=== PATIENT | male | born 1985 | race Caucasian/White ===

== ENCOUNTER 2020-08-24 12:31 | Emergency (ER) | payer OTHER, SELFPAY ==
[2020-08-24 12:41] VITALS: BP 132/78; PULSE 87; RESP 16; TEMP 36.8; O2SAT 99
--- NOTE | 2020-08-24 12:48 | ED.SKABFB ---
HPI - Skin/Abscess/Foreign Bdy General Chief complaint: Unspecified Stated complaint: Possible Hernia in the Groin Time Seen by Provider: 08/24/20 12:50 Source: patient and RN notes reviewed History of Present Illness HPI narrative: Patient is a 35-year-old male who presents the urgent care with complaints of a right groin swelling with possible hernia . Patient states that he noticed it 3 days ago and has increased in pain today. Patient has not done anything for his pain [id number]. Denies of any recent heavy lifting or strenuous activity out of the ordinary. Denies of any fevers, nausea, vomiting, abdominal pain. No other acute complaints. No acute distress noted. Patient aware of the plan of care. Some parts of this dictation were generated by voice recognition software and may contain typographical and/or grammatical inaccuracies. Related Data Allergies Allergy/AdvReac Type Severity Reaction Status Date / Time Penicillins Allergy Hives Verified 08/24/20 12:50 PMFSH Comments At the time of my signature, I reviewed and agree with the nursing past medical, surgical, social, and family history. There is no relevant family history pertinent to the patient complaint. Exam Narrative: Exam Narrative: GENERAL: This is a well-nourished, well-developed patient, in no apparent distress. HEAD: normocephalic, atraumatic. EYES: PERRL. Sclera clear/white. Vision is grossly intact. EARS: External ears normal NOSE: External nose normal with no obvious nasal discharge, nares without redness, no rhinorrhea. THROAT: Mucous membranes moist NECK: Neck supple CARDIOVASCULAR: Regular rate and rhythm without murmurs, gallops, or rubs. RESPIRATORY: Clear to auscultation. Breath sounds equal bilaterally. No wheezes, rales, or rhonchi. SKIN: 1 x 2cm erythemic raised tender folliculitis to the right groin NEURO: awake, alert, and oriented to person, place and time. There were no obvious focal neurologic abnormalities. EXTREMITIES: No clubbing, cyanosis, or edema. Course Vital Signs Vital signs: Vital Signs Temperature 98.3 F 08/24/20 12:41 Pulse Rate 87 08/24/20 12:41 Respiratory Rate 16 08/24/20 12:41 Blood Pressure 132/78 08/24/20 12:41 Pulse Oximetry 99 08/24/20 12:41 Temperature 98.3 F 08/24/20 12:41 Pulse Rate 87 08/24/20 12:41 Respiratory Rate 16 08/24/20 12:41 Blood Pressure 132/78 08/24/20 12:41 Pulse Oximetry 99 08/24/20 12:41 Reviewed MDM - Skin/Abscess/Foreign Bdy MDM Narrative Medical decision making narrative: Advised the patient to use a warm compress to the area for comfort. May do Epson salt baths. Do not shave directly over the area. Do not try to pop the area . I let it resolve on its own. If it does happen open just be sure to keep it very clean with plain Dial soap and water. Increase sweating increase your risks of recurrent folliculitis. Keep the area very dry. Complete oral antibiotic regimen as prescribed. Follow-up with your PCP within 2 to 5 days or for worsening symptoms or failure to improve. Differential Diagnosis Differential diagnosis: Likely abscess of skin or subcutaneous tissue, herpes zoster, impetigo and contact dermatitis Critical Care Time Critical Care Time Critical Care Time: No Discharge Plan Discharge Clinical Impression: Folliculitis Patient Disposition: Home, Self-Care Condition: Stable Instructions: Antibiotic Form, Folliculitis (ED) Additional Instructions: Advised the patient to use a warm compress to the area for comfort. May do Epson salt baths. Do not shave directly over the area. Do not try to pop the area . I let it resolve on its own. If it does happen open just be sure to keep it very clean with plain Dial soap and water. Increase sweating increase your risks of recurrent folliculitis. Keep the area very dry. Complete oral antibiotic regimen as prescribed. Follow-up with your PCP within 2 to 5 days or for worsenin
== END 2020-08-24 13:05 | disposition home or self-care (01) ==
PROVIDERS: Emergency Provider Nurse Practitioner Family; PCP Family Medicine
DX: L73.9 Follicular disorder, unspecified (principal)
CPT/HCPCS: 99213; G0463